=== PATIENT | female | born 1965 | race Caucasian/White ===

== ENCOUNTER 2019-01-15 13:12 | Emergency (ER) | payer BC, MEDICAID ==
[~2019-01-15] VITALS: Ht 172.7 cm; Wt 79.4 kg
[2019-01-15 13:20] VITALS: BP 116/87
--- NOTE | 2019-01-15 13:28 | NUR ---
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
--- NOTE | 2019-01-15 13:39 | NUR ---
pt arrived by ambulance c/o mechanical fall x today. pt has a posterior hematoma of the head s/p mechanical fall. perrla 4mm. no resp distree. vs stable. pt denies pain. a&o to person, place, date. small abrasion to the right forearm. no obvious deformity noted on extrems. pt denies allergies. pmh: mental retardation.
[2019-01-15 14:23] VITALS: BP 116/87
--- NOTE | 2019-01-15 14:23 | NUR ---
Patient discharged with v/s stable. Written and verbal after care instructions given and explained. Patient verbalized understanding. Ambulatory with steady gait. All questions addressed prior to discharge. Advised to follow up with PMD.
== END 2019-01-15 14:23 | disposition home or self-care (01) ==
LOC: MED 13:12
DX: S00.03XA Contusion of scalp, initial encounter (principal); F79 Unspecified intellectual disabilities; M25.512 Pain in left shoulder; W01.0XXA Fall on same level from slipping, tripping and stumbling without subsequent striking against object, initial encounter; Y93.89 Activity, other specified; Y92.481 Parking lot as the place of occurrence of the external cause; Y99.8 Other external cause status
CPT/HCPCS: 99283